=== PATIENT | female | born 1980 | race Caucasian/White ===

== ENCOUNTER 2018-03-21 10:27 | Emergency (ER) | payer SELFPAY ==
[2018-03-21] VITALS (8 sets, daily range): BP systolic 120–135; BP diastolic 76–88; PULSE 58–71; RESP 13–18; TEMP 36.8–37; O2SAT 94–96; BMI 31.5
--- NOTE | 2018-03-21 10:41 | DI.RAD.S_ITS ---
PROCEDURE: XR CHEST 2V INDICATIONS: cough, sob TECHNIQUE: 2 views of the chest were acquired. COMPARISON: None. FINDINGS: Surgical changes and devices: None. Lungs and pleura: No pleural effusions or pneumothorax. On lateral view, there is an area of radiodensity measuring 2.2 x 5.9 cm anterior to the right hilum, not apparent on PA imaging. Mediastinum: Mediastinal contours are normal. Heart size is normal. Bones and chest wall: No suspicious bony abnormalities. Soft tissues appear unremarkable. IMPRESSION: Right pre-hilar radiodensity is indeterminant. This could be artifactual, representing superimposition of vascular structures, but is indeterminate. Contrast enhanced CT chest is suggested. Dictated by: Cesar Florian M.D. on 03/21/2018 at 10:55 Approved by: Cesar Florian M.D. on 03/21/2018 at 10:59
[2018-03-21] MEDS: ALBUTEROL/IPRATROPIUM 3 ML AMPUL 6 ML INH (10:55)
[2018-03-21] MEDS: cephALEXin 250 MG CAPSULE 500 MG PO (11:06)
[2018-03-21] MEDS: DEXAMETHASONE 4 MG TABLET 16 MG PO (11:06)
[2018-03-21] MEDS: DOXYCYCLINE HYCLATE 100 MG TABLET PO (11:07)
[2018-03-21] MEDS: ALBUTEROL 2.5 MG/3 ML NEB (ADULT) INH ×2 (11:14→11:15)
--- NOTE | 2018-03-21 11:29 | PC.NURSE ---
had two breathing treatments with RT, beginning to open up lungs. starting to wheeze. standby assist with Dr. Ma to look at abscess on abdomen.
[2018-03-21] MEDS: ONDANSETRON 4 MG/2 ML INJ IV (12:02)
--- NOTE | 2018-03-21 13:36 | ED_ITS ---
HPI - Asthma General Chief Complaint: Asthma Stated Complaint: asthma exacerbation History of Present Illness HPI Narrative: HPI 37-year-old female asthmatic smoker who is noncompliant with medications presents with resolving shortness of breath, patient has been experiencing several days of increased wheezing and dyspnea consistent with prior asthma exacerbations, EMS found the patient tripoding, short of breath, and with SaO2 of 87%, the patient had improvement during transport with albuterol nebulizers. Patient is also requesting evaluation a incidental boil on her right lower abdominal wall on the inferior aspect of her pannus, notes a history of hidradenitis suppurativa. Denies fevers, chills. No recent change in cough, no history of DVT or PE. M/S/F/SocHx notable for: please see HPI; remainder reviewed with patient and in chart. ROS: Negative constitutional, eye, cardiovascular, pulmonary, GI, , MSK, skin , neurologic, psychiatric, endocrine unless noted in the HPI. Exam Gen: Pleasant, non-toxic appearing, resting comfortably. HEENT: NC, AT, PEERL, EOMI. Resp: diffuse extra wheezing throughout all lung mo, mildly increased work of breathing. Card: Regular rate and rhythm with no murmurs, rubs, or gallops, extremities warm and well perfused. GI: Non-tender to palpation throughout all quadrants, no focal tenderness at McBurney's point, negative Guerrero's sign, non-distended, no rebound or guarding. : No suprapubic tenderness to palpation. MSK: No visible deformities, strength and tone without visually appreciable deficit. Skin: right anterior lower abdominal wall immediately the inferior aspect of the pannus sold with an approximately 6 x 4 cm area of induration, with erythema , no fluctuance or crepitus. Bedside ultrasound with subcutaneous cobblestoning and a central fluid collection. Neuro: AO x 3, no facial asymmetry, vision and hearing WNL. Psych: Mood and affect appropriate. Labs / Imaging: CXR: Right pre-hilar radiodensity is indeterminant. This could be artifactual, representing superimposition of vascular structures, but is indeterminate. Contrast enhanced CT chest is suggested. MDM Previous chart, nursing note, labs, imaging, and vitals reviewed. A: 37-year-old female asthmatic smoker who is noncompliant with medications presents with wheezing, shortness breath, and request a incidental evaluation of a boil on the inferior right sided aspect of her abdominal pannus. Evaluation: history and exam consistent with an asthma exacerbation, suspect acute worsening of chronic disease process triggered likely by smoking and environmental allergens. Chest x-ray obtained, no evidence of acute abnormality , however there is a indeterminate pre-hilar radiodensity. This does not appear to be an emergent process as the patient received a DuoNeb ?2, albuterol ?1, and 60 mg dexamethasone with resolution of symptoms. No identifiable risk factors for PE. No evidence of pneumonia. Patient also with a right abdominal wall abscesses and cellulitis, drainage as below. Prescribed cephalexin and doxycycline. Patient informed of abnormal chest x-ray findings and instructed to follow up with a PCP to obtain a CT chest for further evaluation. Discharge prescription for albuterol inhaler with spacer as well as a repeat dose of dexamethasone provided. Impression: asthma exacerbation, abscess (please reference below for remainder of encounter information) Incision and Drainage Verbal consent obtained. The abscess and surrounding area was cleaned with chlorhexidine for 30 seconds. A field block using ~6 mL of lidocaine with epinephrine was performed. An 11 blade was used to make a 1.5 cm long incision with expression of purulent material, sterile hemostats were used to break loculations. A sterile dressing was placed over the wound. The patient tolerated the procedure well without any apparent complications. Related Data Home Medications Medication Instructions Recorded Confirmed atenolol 25 mg PO BID 03/21/18 03/21/18 ibuprofen 200 mg PO PRN PRN 03/21/18 03/21/18 Allergies Allergy/AdvReac Type Severity Reaction Status Date / Time ciprofloxacin [From Cipro] Allergy Unknown Verified 03/21/18 10:47 Exam Initial Vital Signs Initial Vital Signs: Vital Signs Temperature 98.3 F 03/21/18 10:43 Pulse Rate 70 03/21/18 10:43 Respiratory Rate 18 03/21/18 10:43 Blood Pressure 120/80 03/21/18 10:43 Pulse Oximetry 96 03/21/18 10:43 [facility] Social History Smoking Status: Current every day smoker Course Orders Ordered: ED Orders 03/21/18 10:41 XR chest 2V Stat Albuterol (Ventolin) 2.5 mg INH NOW PRN PRN Reason: Wheezing Last Admin: 03/21/18 11:15 Dose: 2.5 mg Admin: 03/21/18 11:14 Dose: 2.5 mg Discontinued Medications Albuterol/Ipratropium (Duoneb) 6 ml INH NOW ONE Stop: 03/21/18 10:42 Last Admin: 03/21/18 10:55 Dose: 6 ml Cephalexin HCl (Keflex) 500 mg PO NOW ONE Stop: 03/21/18 10:42 Last Admin: 03/21/18 11:06 Dose: 500 mg Dexamethasone (Decadron) 16 mg PO NOW ONE Stop: 03/21/18 10:42 Last Admin: 03/21/18 11:06 Dose: 16 mg Doxycycline Hyclate (Vibramycin) 100 mg PO NOW ONE Stop: 03/21/18 10:42 Last Admin: 03/21/18 11:07 Dose: 100 mg Ondansetron HCl (Zofran) 4 mg IV NOW ONE Stop: 03/21/18 12:00 Last Admin: 03/21/18 12:02 Dose: 4 mg Vital Signs - 8 hr 03/21/18 10:43 03/21/18 10:56 03/21/18 11:17 Temperature 98.3 F Pulse Rate 70 71 69 Respiratory Rate 18 15 13 Blood Pressure 120/80 Blood Pressure [Right Arm] Pulse Oximetry 96 96 94 03/21/18 11:19 03/21/18 12:07 03/21/18 13:00 Temperature Pulse Rate 67 67 69 Respiratory Rate 14 Blood Pressure Blood Pressure [Right Arm] 126/76 H 135/88 H Pulse Oximetry 94 96 96 Discharge Plan Departure Prescriptions: No Action ibuprofen 200 mg Tablet 200 mg PO PRN PRN (Reason: Pain, Mild) RF: 0 atenolol 50 mg Tablet 25 mg PO BID RF: 0
== END 2018-03-21 14:01 | disposition home or self-care (01) ==
PROVIDERS: Emergency Provider Emergency Medicine
DX: J45.901 Unspecified asthma with (acute) exacerbation (principal); L02.211 Cutaneous abscess of abdominal wall
CPT/HCPCS: 10060; 71046; 94150; 94640; 99283; 99284; J2405; J7613

== ENCOUNTER 2021-09-26 19:40 | Emergency (ER) | payer OTHER, MEDICAID, SELFPAY ==
[2021-09-26 20:00] VITALS: BP 114/64; PULSE 116; RESP 20; TEMP 36.8; O2SAT 98; BMI 35.4
[2021-09-26 20:43] LABS: Add Manual Diff / Slide Review NO; Basophils Absolute Auto 100 /uL (0-100); Basophils Percent Auto 1.3 % (0-2); Eosinophils Absolute Auto 200 /uL (0-450); Eosinophils Percent Auto 2.8 % (2-4); Hematocrit 37.8 % (36-46); Hemoglobin 12.7 g/dL (12.0-16.0); Lymphocytes Absolute Auto 1900 /uL (1100-4500); Lymphocytes Percent Auto 23.2 % (25-40); Mean Corpuscular HGB Conc 33.6 % (30-36); Mean Corpuscular Hemoglobin 26.3 PG (26-34); Mean Corpuscular Volume 78.2 fL (80-100); Monocytes Absolute Auto 500 /uL (0-900); Monocytes Percent Auto 6.3 % (3-14); Neutrophils Absolute Auto 5400 /uL (1500-7000); Neutrophils Percent Auto 66.4 % (50-75); Platelet Count 388 X10^3/uL (150-400); Red Blood Cell Count 4.83 X10^6/uL (4.0-5.2); Red Cell Distribution Width 15.5 % (11.6-14.8); White Blood Cell Count 8.2 X10^3/uL (4.5-11.0)
[2021-09-26 20:58] LABS: Alanine Aminotransferase 56 IU/L (<35); Albumin 4.6 g/dL (3.5-5.0); Albumin Globulin Ratio 1.3 (1.0-2.8); Alkaline Phosphatase 75 U/L (38-126); Aspartate Aminotransferase 42 IU/L (14-36); BUN Creatinine Ratio 15.9 (6-22); Bilirubin Total 1.6 mg/dL (0.2-1.3); Blood Urea Nitrogen 13 mg/dL (7-17); Calcium 10.1 mg/dL (8.4-10.2); Carbon Dioxide 29 mmol/L (22-32); Chloride 100 mmol/L (98-107); Estimated Glomerular Filt Rate > 60.0 mL/min (>60); Globulin 3.6 g/dL (1.7-4.1); Glucose 122 mg/dL (70-100); HEMOLYSIS < 15 (0-50); Lipase 80 U/L (23-300); Sodium 136 mmol/L (137-145); Total Protein 8.2 g/dL (6.3-8.2)
--- NOTE | 2021-09-26 21:37 | ED_ITS ---
HPI - Nausea/Vomiting/Diarrhea General Chief complaint: Nausea/Vomiting/Diarrhea Stated complaint: stomach pain; vomitted Time Seen by Provider: 09/26/21 21:37 Source: patient Mode of arrival: Ambulatory History of Present Illness HPI Narrative: Patient is a 40-year-old female who presents with upper abdominal pain all and nausea. She has history of depression started taking Wellbutrin it was making her nauseous her doctor prescribed her Zofran however she has been taking quite a few times for the last few days. She has had multiple episodes of nonbloody diarrhea. Body aches fevers or chills. She does have intense pain of right upper quadrant pain that radiates to her shoulder. She had a previous cholecystectomy. She was she just got over COVID 3 weeks ago she is vaccinated and boosted. She did have some similar symptoms then. Related Data Home Medications Medication Instructions Recorded Confirmed atenolol 50 mg tablet 25 mg PO BID 03/21/18 03/21/18 ibuprofen 200 mg tablet 200 mg PO PRN PRN 03/21/18 03/21/18 Previous Rx's Medication Instructions Recorded albuterol sulfate 90 mcg/actuation 2 puff INHALATION Q4-6H PRN #1 each 03/21/18 breath activated powder inhaler cephalexin 500 mg capsule (Keflex) 500 mg PO QID #40 cap 03/21/18 dexamethasone 4 mg tablet See Rx Instructions .ROUTE 03/21/18 .COMPLEX #3 tab doxycycline hyclate 100 mg capsule 100 mg PO BID #20 cap 03/21/18 ondansetron 4 mg disintegrating 4 mg PO Q8H PRN #10 tab 09/26/21 tablet Allergies Allergy/AdvReac Type Severity Reaction Status Date / Time ciprofloxacin [From Cipro] Allergy Unknown Verified 03/21/18 10:47 Review of Systems Review of Systems Narrative: GENERAL: Denies chills, fatigue, malaise, fever, sweats, travel HEENT: Denies sinus pain, ear pain, sore throat, difficulty swallowing, neck pain RESPIRATORY: Denies dyspnea, cough, wheezing, hemoptysis, sputum. CARDIOVASCULAR: Denies chest pain, palpitations, orthopnea, edema GASTROINTESTINAL: See HPI : Denies dysuria, frequency, incontinence, hematuria, urinary retention, flank pain. MUSCULOSKELETAL: Denies weakness, joint pain, or bony pain SKIN: No rash, no erythema, no pruritus NEUROLOGIC: Denies weakness, dizziness, headache, numbness, change in speech, confusion PSYCHIATRIC: No concerning psychosocial issues. 12 point review of systems is negative except for those stated above and HPI Patient History Medical History Depression Social History Smoking Status: Current every day smoker Smoking Status: Current every day smoker alcohol intake frequency: a few times a week Substance Use Type: marijuana Exam Initial Vital Signs Initial Vital Signs: Vital Signs Temperature 98.3 F 09/26/21 20:00 Pulse Rate 116 H 09/26/21 20:00 Respiratory Rate 20 09/26/21 20:00 Blood Pressure 114/64 09/26/21 20:00 Pulse Oximetry 98 09/26/21 20:00 GENERAL: Alert 40-year-old female appears uncomfortable HEENT: Head atraumatic,EOMI, pupils reactive, face symmetric, [moist] mucous membranes CARDIOVASCULAR: Regular rate and rhythm without murmurs, rubs or gallops. RESPIRATORY: Breath sounds equal bilaterally, no wheezes rales or rhonchi. ABDOMEN: Soft, tender epigastric and right upper quadrant positive Guerrero sign mildly tender elsewhere with no guarding or rebound EXTREMITIES: Normal range of motion, no clubbing or edema. Neurovascularly intact NEUROLOGICAL: Alert and oriented x4.Normal gait and speech. SKIN: Warm, dry, no laceration, no petechiae, no rashes or lesions. Course Orders Ordered: ED Orders 09/26/21 20:17 EKG-12 Lead Stat 09/26/21 20:28 Complete Blood Count AUTO DIFF Stat Comprehensive Metabolic Panel Stat Lipase Stat 09/26/21 22:03 CT abdomen pelvis w con Stat US abdomen limited Stat Discontinued Medications Ketorolac Tromethamine (Ketorolac 30 Mg/Ml Vial) 15 mg IV NOW ONE Stop: 09/26/21 22:05 Last Admin: 09/26/21 22:14 Dose: 15 mg Documented by: ROMI Vital Signs Vital signs: Vital Signs - 8 hr 09/26/21 20:00 09/26/21 23:22 Temperature 98.3 F Pulse Rate 116 H 79 Respiratory Rate 20 18 Blood Pressure 114/64 132/73 Pulse Oximetry 98 100 MDM - Nausea/Vomiting/Diarrhea Lab Data Result diagrams: 09/26/21 20:28 09/26/21 20:28 Labs: Lab Results 09/26/21 09/26/21 Range/Units 20:28 20:28 WBC 8.2 (4.5-11.0) X10^3/uL RBC 4.83 (4.0-5.2) X10^6/uL Hgb 12.7 (12.0-16.0) g/dL Hct 37.8 (36-46) % MCV 78.2 L (80-100) fL MCH 26.3 (26-34) PG MCHC 33.6 (30-36) % RDW 15.5 H (11.6-14.8) % Plt Count 388 (150-400) X10^3/uL Neut % (Auto) 66.4 (50-75) % Lymph % (Auto) 23.2 L (25-40) % [place] % (Auto) 6.3 (3-14) % Eos % (Auto) 2.8 (2-4) % Baso % (Auto) 1.3 (0-2) % Neut # (Auto) 5400 (3253-7724) /uL Lymph # (Auto) 1900 (8587-6256) /uL [place] # (Auto) 500 (0-900) /uL Eos # (Auto) 200 (0-450) /uL Baso # (Auto) 100 (0-100) /uL Sodium 136 L (137-145) mmol/L Potassium 4.0 (3.4-5.1) mmol/L Chloride 100 (98-107) mmol/L Carbon Dioxide 29 (22-32) mmol/L BUN 13 (7-17) mg/dL Creatinine 0.82 (0.52-1.04) mg/dL Estimated GFR > 60.0 (>60) mL/min BUN/Creatinine Ratio 15.9 (6-22) Glucose 122 H (70-100) mg/dL Calcium 10.1 (8.4-10.2) mg/dL Total Bilirubin 1.6 H (0.2-1.3) mg/dL AST 42 H (14-36) IU/L ALT 56 H (<35) IU/L Alkaline Phosphatase 75 (38-126) U/L Total Protein 8.2 (6.3-8.2) g/dL Albumin 4.6 (3.5-5.0) g/dL Globulin 3.6 (1.7-4.1) g/dL Albumin/Globulin Ratio 1.3 (1.0-2.8) Lipase 80 (23-300) U/L Point of Care Testing Test Results Negative Urine Dip Bedside Urine Glucose Negative Bedside Urine Bilirubin - Negative Bedside Urine Ketone - Negative Urine Specific [place] 1.015 Bedside Urine Occult Blood - Negative Bedside Urine pH 6 Bedside Urine Protein - Negative Bedside Urine Urobilinogen - Negative Bedside Urine Nitrite - Negative Bedside Urine Leukocytes - Negative Esterase Imaging Data US - abdomen: Radiologist's Impression: PROCEDURE: US ABDOMEN LIMITED ? INDICATIONS:? RUQ PAIN ? TECHNIQUE:? Real-time focused scanning was performed of the abdomen, with image docume ntation.? ? COMPARISON:? [facility], CT, CT ABDOMEN PELVIS W CON, 09/26/2021, 22:09. ? FINDINGS:? The liver demonstrates normal size. The liver demonstrates generalized moderately increased echogenicity. This decreases ultrasound sensitivity for detection of hepatic masses.? ? Status post cholecystectomy. ? There is no biliary dilatation for a post cholecystectomy patient, the common bile duct measures 8 mm.? ? No significant pancreatic abnormality is seen on these images.? ? ? IMPRESSION:? Status post cholecystectomy, without biliary dilatation. ? The liver demonstrates increased echogenicity, which is attributed to fatty infiltration. ? ? ? Dictated by: Dada Bang M.D. on 09/26/2021 at 21:49 ? CT scan - abdomen/pelvis: Radiologist's Impression: PROCEDURE:? CT ABDOMEN PELVIS W CON ? INDICATIONS:? ab pain ruq pain, nausea ? TECHNIQUE:? After the administration of oral and IV contrast, axial sections were acquired from the lung bases to the pubic symphysis.? Coronal and sagittal reformats were performed.? For radiation dose reduction, the following was used:? automated exposure control, adjustment of mA and/or kV according to patient size. ? COMPARISON:? None. ? FINDINGS:? Image quality:? Excellent.? ? Lung bases:? Unremarkable.? ? Heart:? No significant findings. ? ? ABDOMEN: Liver: Diffuse fatty liver infiltration is noted.? The liver is normal in size and demonstrates no focal lesions. Gallbladder:? Removed.? ? Biliary ducts:? Unremarkable.? ? The common bile duct is not enlarged, measuring 7 mm. Pancreas:? Unremarkable.? ? Spleen:? Unremarkable.? ? Adrenal Glands:? Unremarkable.? ? Kidneys and Ureters:? Unremarkable.? ? ? Stomach and Bowel:? Stomach, small bowel loops, and colon are unremarkable.? A normal appendix is incidentally noted.? Peritoneum:? No abnormal intraperitoneal fluid.? No free air.? ? Ventral Wall: A mild periumbilical hernia is seen, containing fat. ? Abdominal Nodes:? No retroperitoneal or mesenteric adenopathy by size criteria.? Borderline prominent mesenteric lymph nodes can be seen.? Vessels:? Aorta and inferior vena cava are normal in size.? ? PELVIS: Pelvic Organs: The uterus appears normal for age.? No adnexal masses are seen.? Bilateral ovarian cysts are seen, which are considered to be within physiologic limits. Bladder:? Unremarkable.? ? Pelvic Nodes: No enlarged lymph nodes.? Miscellaneous: No inguinal hernias are seen. ? ? ? Bones:? There is [id number] levoconvex lumbar scoliosis.? Lower lumbar spine degenerative changes are seen. ? ? IMPRESSION:? ? A cause of right upper quadrant pain is not identified. ? Status post cholecystectomy, without biliary dilatation. ? No dilated loops of small bowel are seen. ? Incidental note is made of: Fatty liver infiltration Fat containing periumbilical hernia Borderline prominent message lymph nodes Normal appendix Physiologic appearing cysts seen of the ovaries. [id number] levoconvex lumbar scoliosis Premature lower lumbar spine degenerative change? ? Dictated by: Dada Bang M.D. on 09/26/2021 at 21:23 ? ECG Data Interpretation: Normal sinus rhythm rate 98 RI interval 162 QRS [address] changes no T- wave inversions MDM Narrative Medical decision making narrative: The patient initially is tender epigastric right upper quadrant area mildly elevated LFTs and mild elevated bilirubin of 1.6. Pulse ultrasound and CT are negative blood work is otherwise reassuring. Possible gastroenteritis with diarrhea and nausea with some vomiting. She has been on Wellbutrin for about 10 days, may also be both side effects of Wellbutrin. Recommend discussing this with her provider. No evidence of significant dehydration. Discharge Plan Departure Patient Disposition: Home Clinical Impression: Gastroenteritis Instructions: DI for Viral Gastroenteritis -- Adult Activity Restrictions/Additional Instructions: *You have been diagnosed with gastroenteritis *What to do: Increase fluid intake as tolerated. *Continue to take medications as directed Zofran 4 mg every 8 hours if needed for nausea or vomit--> SENT TO [facility] [place] Ibuprofen 600 mg every 6-8 hours if needed for fall pain *Follow up with your primary care provider in 2-3 days or call [phone] *Return to ER if you should have increased diarrhea, increased pain, persistent vomiting or any new, worsening or concerning symptoms Prescriptions: New ondansetron 4 mg tablet,disintegrating 4 mg PO Q8H PRN (Reason: nausea and vomiting) Qty: 10 0RF No Action ibuprofen 200 mg Tablet 200 mg PO PRN PRN (Reason: Pain, Mild) 0RF atenolol 50 mg Tablet 25 mg PO BID 0RF doxycycline hyclate 100 mg capsule 100 mg PO BID Qty: 20 0RF cephalexin [Keflex] 500 mg capsule 500 mg PO QID Qty: 40 0RF dexamethasone 4 mg tablet See Rx Instructions .ROUTE .COMPLEX Qty: 3 0RF Rx Instructions: Take 12 mg evening of 03/22/18. albuterol sulfate 90 mcg/actuation aerosol powdr breath activated 2 puff INHALATION Q4-6H PRN (Reason: shortness of breath) Qty: 1 0RF Rx Instructions: administer with spacer Referrals: Sandra Velarde ARNP, [facility] [employer] [facility] [Primary Care Provider] -
--- NOTE | 2021-09-26 22:03 | DI.US.S_ITS ---
PROCEDURE: US ABDOMEN LIMITED INDICATIONS: RUQ PAIN TECHNIQUE: Real-time focused scanning was performed of the abdomen, with image documentation. COMPARISON: [facility], CT, CT ABDOMEN PELVIS W CON, 09/26/2021, 22:09. FINDINGS: The liver demonstrates normal size. The liver demonstrates generalized moderately increased echogenicity. This decreases ultrasound sensitivity for detection of hepatic masses. Status post cholecystectomy. There is no biliary dilatation for a post cholecystectomy patient, the common bile duct measures 8 mm. No significant pancreatic abnormality is seen on these images. IMPRESSION: Status post cholecystectomy, without biliary dilatation. The liver demonstrates increased echogenicity, which is attributed to fatty infiltration. Dictated by: Dada Bang M.D. on 09/26/2021 at 21:49 Approved by: Dada Bang M.D. on 09/26/2021 at 21:50
--- NOTE | 2021-09-26 22:03 | DI.CT.S_ITS ---
PROCEDURE: CT ABDOMEN PELVIS W CON INDICATIONS: ab pain ruq pain, nausea TECHNIQUE: After the administration of oral and IV contrast, axial sections were acquired from the lung bases to the pubic symphysis. Coronal and sagittal reformats were performed. For radiation dose reduction, the following was used: automated exposure control, adjustment of mA and/or kV according to patient size. COMPARISON: None. FINDINGS: Image quality: Excellent. Lung bases: Unremarkable. Heart: No significant findings. ABDOMEN: Liver: Diffuse fatty liver infiltration is noted. The liver is normal in size and demonstrates no focal lesions. Gallbladder: Removed. Biliary ducts: Unremarkable. The common bile duct is not enlarged, measuring 7 mm. Pancreas: Unremarkable. Spleen: Unremarkable. Adrenal Glands: Unremarkable. Kidneys and Ureters: Unremarkable. Stomach and Bowel: Stomach, small bowel loops, and colon are unremarkable. A normal appendix is incidentally noted. Peritoneum: No abnormal intraperitoneal fluid. No free air. Ventral Wall: A mild periumbilical hernia is seen, containing fat. Abdominal Nodes: No retroperitoneal or mesenteric adenopathy by size criteria. Borderline prominent mesenteric lymph nodes can be seen. Vessels: Aorta and inferior vena cava are normal in size. PELVIS: Pelvic Organs: The uterus appears normal for age. No adnexal masses are seen. Bilateral ovarian cysts are seen, which are considered to be within physiologic limits. Bladder: Unremarkable. Pelvic Nodes: No enlarged lymph nodes. Miscellaneous: No inguinal hernias are seen. Bones: There is [id number] levoconvex lumbar scoliosis. Lower lumbar spine degenerative changes are seen. IMPRESSION: A cause of right upper quadrant pain is not identified. Status post cholecystectomy, without biliary dilatation. No dilated loops of small bowel are seen. Incidental note is made of: Fatty liver infiltration Fat containing periumbilical hernia Borderline prominent message lymph nodes Normal appendix Physiologic appearing cysts seen of the ovaries. [id number] levoconvex lumbar scoliosis Premature lower lumbar spine degenerative change Dictated by: Dada Bang M.D. on 09/26/2021 at 21:23 Approved by: Dada Bang M.D. on 09/26/2021 at 21:26
[2021-09-26] MEDS: KETOROLAC 30 MG/ML VIAL 15 MG IV (22:14)
[2021-09-26 23:22] VITALS: BP 132/73; PULSE 79; RESP 18; O2SAT 100
== END 2021-09-26 23:24 | disposition home or self-care (01) ==
PROVIDERS: Emergency Provider Emergency Medicine; PCP Nurse Practitioner Family
DX: K52.9 Noninfective gastroenteritis and colitis, unspecified (principal); F17.200 Nicotine dependence, unspecified, uncomplicated
CPT/HCPCS: 36415; 74177; 76705; 80053; 81003; 81025; 83690; 85025; 93005; 96374; 99284; J1885; Q9967